=== PATIENT | male | born 1955 | race Caucasian/White ===

== ENCOUNTER 2017-03-15 10:53 | Emergency (ER) | payer BC, OTHER ==
--- NOTE | 2017-03-15 11:27 | Emergency Department Record ---
History of Present Illness - General Chief Complaint: Dizziness Stated Complaint: DIZZINESS Time Seen by Provider: 03/15/17 11:13 Source: Patient Mode of Arrival: Ambulatory Limitations: No limitations - History of Present Illness Initial Comments: 62 yo male presents to ED with multiple complaints over the past 3-4 days. Patient reports generalized weakness and dizziness that began Saturday evening upon arriving home from work, low-grade fever, fatigue, and mild headache (4/10) . Patient denies health problems other than HTN, denies any recent exposures to ill contacts. Patient's significant other looked up his symptoms online, and is concerned about possible meningitis. MD Complaint: Dizziness, Difficulty walking Onset/Timin -: Days(s) Timing: Gradual onset Description: Difficulty walking, Lightheadedness, Off-balance History of Same: Yes History of Trauma: No Severity: Moderate Improves With: Nothing Worsens With: Movement Associated Symptoms: Confusion - [place] Coma Scale Eye Response: (4) Open spontaneously Motor Response: (6) Obeys commands Verbal Response: (5) Oriented Ingrid Total: 15 - Symptoms of Stroke Symptom Onset Unknown: Yes Symptoms of stroke: Dizziness - Related Data Home Medications Medication Instructions Recorded Confirmed Last Taken Astragalus Root Extract 500 gm MC DAILY 09/20/15 03/15/17 1 Day Ago [Astragalus Extract] ~03/14/17 Biotin 5 mg PO DAILY cap 09/20/15 03/15/17 1 Day Ago ~03/14/17 Calcium Carbonate [Calcium] 600 mg PO DAILY tab 09/20/15 03/15/17 1 Day Ago ~03/14/17 Ginkgo Biloba 60 mg PO DAILY cap 09/20/15 03/15/17 1 Day Ago ~03/14/17 Tajik Ginseng Root [Tajik 518 mg PO DAILY cap 09/20/15 03/15/17 1 Day Ago Ginseng] ~03/14/17 Magnesium Oxide [Magnesium] 400 mg PO DAILY cap 09/20/15 03/15/17 1 Day Ago ~03/14/17 Multivitamin [Multi-Day Vitamins] 1 each PO DAILY tab 09/20/15 03/15/17 1 Day Ago ~03/14/17 Gluc/Paresh-MSM#1/C/Chris/Conor/Bor 1 each PO DAILY tab 03/14/16 03/15/17 1 Day Ago [Osteo Bi-Flex] ~03/14/17 Krill Oil 500 mg PO DAILY cap 03/14/16 03/15/17 1 Day Ago ~03/14/17 Coconut Oil 1,000 mg PO TID cap 03/11/17 03/15/17 1 Day Ago ~03/14/17 Allergies Allergy/AdvReac Type Severity Reaction Status Date / Time No Known Allergies Allergy HYPERSENSIT Verified 03/15/17 11:07 IVITY Travel Screening - Travel/Exposure Within Last 30 Days Have you traveled within the last 30 days?: No - Travel/Exposure Within Last Year Have you traveled outside the [place] in the last year?: No - Additonal Travel Details Have you been exposed to anyone with a communicable illness?: No - Travel Symptoms Symptom Screening: None Review of Systems Constitutional: Reports: Fever, Malaise, Weakness. Denies: Chills, Night sweats Eyes: Denies: Eye discharge, Eye pain ENT: Denies: Congestion, Ear pain, Epistaxis Respiratory: Reports: Dyspnea. Denies: Cough Cardiovascular: Denies: Chest pain, Dyspnea on exertion, Palpitations Endocrine: Reports: Fatigue. Denies: Heat or cold intolerance Gastrointestinal: Denies: Abdominal pain, Constipation, Nausea, Vomiting Genitourinary: Denies: Incontinence, Retention Musculoskeletal: Denies: Arthralgia, Back pain, Gout, Joint swelling Skin: Denies: Bruising, Change in color Neurological: Reports: Abnormal gait, Headache. 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 - CARDIOVASCULAR Hx Heart Attack: Yes Comment:: mitral valve prolapse, hyperlipidemia - NEURO Hx Headaches: Yes - GI Hx Hiatal Hernia: Yes - Hx Genitourinary Disorders: No - ENDOCRINE Hx Diabetes: No Hx Thyroid Disease: No - HEMATOLOGY/ONCOLOGY Hx Hematology/Oncology Disorders: No Family Medical History Any Significant Family History?: Yes Family Hx Comment (NOT TO BE USED IN PLACE OF ITEMS BELOW): aortic aneurysm Hx HTN: Father, Mother Physical Exam - General General Appearance: Alert, Oriented x3, Cooperative, Mild distress Limitations: No limitations - Head Head exam: Atraumatic, Normocephalic, Normal inspection Head exam detail: negative: Abrasion, Contusion, Robertson's sign, General tenderness, Hematoma, Laceration - Eye Eye exam: Normal appearance. negative: Conjunctival injection, Periorbital swelling, Periorbital tenderness, Scleral icterus - ENT Ear exam: negative: Auricular hematoma, Auricular trauma Nasal Exam: negative: Active bleeding, Discharge, Dried blood, Foreign body Mouth exam: negative: Drooling, Laceration, Muffled voice, Tongue elevation - Neck Neck exam: Normal inspection. negative: Lymphadenopathy, Meningismus, Tenderness - Respiratory Respiratory exam: Normal lung sounds bilaterally. negative: Rales, Respiratory distress, Rhonchi, Stridor - Cardiovascular Cardiovascular Exam: Regular rate, Normal rhythm, Normal heart sounds - GI/Abdominal GI/Abdominal exam: Soft. negative: Rebound, Rigid, Tenderness - Rectal Rectal exam: Deferred - exam: Deferred - Extremities Extremities exam: Normal inspection. negative: Calf tenderness, Pedal edema, Tenderness - Back Back exam: Denies: CVA tenderness (R), CVA tenderness (L) - Neurological Neurological exam: Alert, Normal gait, Oriented X3 - Psychiatric Psychiatric exam: Normal affect, Normal mood - Skin Skin exam: Normal color. negative: Abrasion Type of lesion: negative: abrasion Course Vital Signs 03/15/17 10:55 Temperature 99.1 F Pulse Rate 75 Respiratory 18 Rate Blood Pressure 126/88 Pulse Ox 97 - Reevaluation(s) Reevaluation #1: 03/15/17 11:25 Patient seen and examined. Patient has no meningeal signs on examination, rates BURGOS as a 4/10 at this time. I counseled the patient and his SO that meningitis is unlikely at this point, will obtain laboratory studies, CXR, and CT Brain. If all results are negative, will discuss LP with the patient at that time. Patient and SO agree with plan as discussed. Reevaluation #2: 03/15/17 12:28 Labs reviewed, WBC 12.6, labs are otherwise grossly unremarkable for acute process. Reevaluation #3: 03/15/17 12:46 CT Brain: Nothing acute CXR: Nothing acute Patient reassessed, reports that he is feeling better. Patient reports his headache pain level at 3/10, denies neck pain or stiffness. Patient up to ambulate, ambulates with steady gait, denies dizziness at this time. After discussion with the patient and his SO, offered LP purely for completeness sake as clinically the patient is very low risk for the disease. Risks and benefits were discussed, and the patient declined. Patient was encouraged to drink plenty of fluids, rest, ibuprofen for body aches. Patient appears stable for discharge at this time. Medical Decision Making - Lab Data Result diagrams: 03/15/17 11:30 03/15/17 11:30 Disposition Disposition: Discharge Clinical Impression: Viral syndrome Disposition: Home, Self-Care Condition: (2) Stable Instructions: Viral Syndrome (ED) Additional Instructions: Return to ED if your symptoms worsen or if you have any concerns. Drink plenty of fluids/rest. Follow-up with your family doctor in 1-3 days as directed. Forms: Patient Portal Access Time of Disposition: 12:59
[2017-03-15] MEDS ORDERED: 0.9 % SODIUM CHLORIDE 1000ML 1,000 ML IV SCH (11:30)
[2017-03-15 11:40] LABS: URINE APPEARANCE CLEAR; URINE BILIRUBIN NEGATIVE (NEGATIVE); URINE BLOOD NEGATIVE (NEGATIVE); URINE COLOR YELLOW; URINE GLUCOSE (UA) NEGATIVE (NEGATIVE); URINE KETONE NEGATIVE (NEGATIVE); URINE LEUKOCYTE ESTERASE NEGATIVE (NEGATIVE); URINE NITRITE NEGATIVE (NEGATIVE); URINE PROTEIN NEGATIVE (NEGATIVE); URINE UROBILINOGEN 0.2 E.U./dL (0.20 - 1.00)
[2017-03-15 11:40] LABS: BASO % 0.2 % (0-6); EOS % 0.9 % (0-6); GRAN % 67.8 % (47-80); HEMOGLOBIN 17.5 gm/dl (14.0-18.0); LYMPH % 21.8 % (16-45); MEAN CELL VOLUME 89.4 fl (81-97); MEAN CORPUSCULAR HEMOGLOBIN 31.3 pg (27-33); MEAN PLATELET VOLUME 8.8 fl (7.4-10.4); MONO % 9.3 % (0-9); PLATELET COUNT 252 K/uL (130-400); RED BLOOD COUNT 5.59 M/uL (4.40-5.70); WHITE BLOOD COUNT W/O DIFF 12.6 K/uL (4.2-12.2)
[2017-03-15] MEDS ORDERED: ONDANSETRON HCL IV 4 MG/2 ML VIAL IVP ONE (11:41)
[2017-03-15 11:52] LABS: ALB/GLOB RATIO 1.9 (1.1-1.8); ALBUMIN 5.1 gm/dL (3.5-5.0); ALKALINE PHOSPHATASE 97 U/L (38-126); ALT/SGPT 71 U/L (21-72); ANION GAP 12.4 (7-16); AST/SGOT 42 U/L (17-59); BILIRUBIN,TOTAL 0.91 mg/dL (0.2-1.3); BLOOD UREA NITROGEN 24 mg/dL (9-20); CARBON DIOXIDE 26.6 mmol/L (22-30); EST GLOMERULAR FILTRATION RATE > 60 ml/min; GLUCOSE,RANDOM 107 mg/dL (70-110); TOTAL PROTEIN 7.8 gm/dL (6.3-8.2)
[2017-03-15 11:56] LABS: INFLUENZA A NEGATIVE (NEGATIVE); INFLUENZA B NEGATIVE (NEGATIVE)
== END 2017-03-15 13:14 | disposition home or self-care (01) ==
LOC: ER 10:53
DX: B34.9 Viral infection, unspecified (principal); R42 Dizziness and giddiness; R51 Headache; R26.2 Difficulty in walking, not elsewhere classified; I10 Essential (primary) hypertension; I25.2 Old myocardial infarction; I34.1 Nonrheumatic mitral (valve) prolapse
CPT/HCPCS: 99283; 96374; 96361; 99284; 85025; 80053; 81003; 87400; 71020; 70450; J2405; J7030

== ENCOUNTER 2018-05-08 08:36 | Emergency (ER) | payer BC ==
[2018-05-08] MEDS: PROPARACAINE HCL OPTH 15ML BTL OPTH ONE ×2 (09:15)
--- NOTE | 2018-05-08 09:31 | Emergency Department Record ---
History of Present Illness - General Chief complaint: Eye Problem Stated complaint: WELDING BURN TO EYES Time Seen by Provider: 05/08/18 08:57 Source: Patient Mode of Arrival: Ambulatory Limitations: No limitations - History of Present Illness Initial comments: The patient is here due to developing eye irritation this AM. 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 There is no hx of trauma, injury, or contact lense use. MD chief complaint: Eye pain, Eye redness Onset/Timin -: Hour(s) Onset Description: Gradual, Awoke with symptoms Location: Both eyes Place: Home If Injury: Other Eye Symptoms: Burning, Blurry vision, Pain Severity: Moderate Severity scale (1-10): 6 Consistency: Constant Context: Injury Associated Symptoms: None Treatments Prior to Arrival: OTC eye drops - Related Data Visual acuity (L) = 20/: 40 Visual acuity (R) = 20/: 40 With correction: Yes Hx Tetanus Toxoid Vaccination: Yes Patient Tetanus UTD (within 5 yrs): No Allergies Allergy/AdvReac Type Severity Reaction Status Date / Time No Known Allergies Allergy HYPERSENSIT Verified 05/08/18 08:51 IVITY Travel Screening - Travel/Exposure Within Last 30 Days Have you traveled within the last 30 days?: No - Travel/Exposure Within Last Year Have you traveled outside the [place] 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 - CARDIOVASCULAR Hx Heart Attack: Yes Comment:: mitral valve prolapse, hyperlipidemia - NEURO Hx Headaches: Yes - GI Hx GI Disorders: Yes Hx Hiatal Hernia: Yes - Hx Genitourinary Disorders: No - ENDOCRINE Hx Endocrine Disorders: No Hx Diabetes: No Hx Thyroid Disease: No - MUSCULOSKELETAL Hx Musculoskeletal Disorders: Yes - PSYCH Hx Psych Problems: No - HEMATOLOGY/ONCOLOGY Hx Hematology/Oncology Disorders: No Family Medical History Any Significant Family History?: Yes Family Hx Comment (NOT TO BE USED IN PLACE OF ITEMS BELOW): aortic aneurysm Hx HTN: Father, Mother Physical Exam - General General Appearance: Alert, Oriented x3, Cooperative, No acute distress - Head Head exam: Atraumatic, Normocephalic, Normal inspection - Eye Eye exam: Normal appearance, PERRL, Conjunctival injection (trace bilaterally.) , EOMI, Other (There is very mild SPK to the bilateral corneas but no ulcer or abrasion. ). negative: Periorbital swelling, Periorbital tenderness Visual acuity (L) = 20/: 40 Visual acuity (R) = 20/: 40 With correction: Yes - Neck Neck exam: Normal inspection, Full ROM. negative: Tenderness Course Vital Signs 05/08/18 08:53 Temperature 97.7 F Pulse Rate 65 Respiratory 18 Rate Blood Pressure 135/83 Pulse Ox 96 - Reevaluation(s) Reevaluation #1: I did explain to the patient the need to keep the eyes closed today and use the Abx ointment. 05/08/18 09:28 Disposition Disposition: Discharge Clinical Impression: Welders' keratitis of both eyes Disposition: Home, Self-Care Condition: (2) Stable Instructions: Corneal Flash [place] (ED) Additional Instructions: Please keep the eyes closed as much as possible today. Use the Abx ointment to both eyes every 3-4 hours for 3 days. Please see your family doctor if not better in 3 days and return to the ER for any worsening symptoms. Forms: Patient Portal Access Time of Disposition: 09:31 Quality - Quality Measures Quality Measures: N/A - Blood Pressure Screening View Details: Yes Does Patient Have Any of the Following: No Blood Pressure Classification: Pre-Hypertensive BP Reading Systolic Measurement: 131 Diastolic Measurement: 79 Screening for High Blood Pressure: < Pre-Hypertensive BP, F/U Documented > [ [id number]] Pre-Hypertensive Follow-up Interventions: Referral to alternative/primary care provider.
[2018-05-08] MEDS: ERYTHROMYCIN OPTH OINT 3.5GM OPTH ONE (09:33)
[2018-05-08] MEDS: Diph,Pert(Acell),Tet Vac 0.5 ML SYR IM ONE (09:36)
== END 2018-05-08 09:45 | disposition home or self-care (01) ==
LOC: ER 08:36
DX: H16.133 Photokeratitis, bilateral (principal); W89.8XXA Exposure to other man-made visible and ultraviolet light, initial encounter; I25.2 Old myocardial infarction; Y92.009 Unspecified place in unspecified non-institutional (private) residence as the place of occurrence of the external cause
CPT/HCPCS: 90715; 96372; 99283